=== PATIENT | female | born 1950 | race Caucasian/White ===

== ENCOUNTER 2018-08-06 10:51 | Outpatient (CLI) | payer MEDICARE, OTHER, SELFPAY ==
--- NOTE | 2018-08-06 10:48 | DI.RAD_ITS ---
SYMPTOM/DIAGNOSIS: ANNUAL F/U DESIRE BILATERAL HIPS AND PELVIS: Comparison is made with 08/21/17. There has been no change in the bilateral hip prostheses. No abnormal bony lucencies are seen.
== END 2018-08-06 11:11 ==
PROVIDERS: PCP Family Medicine; Referring Provider Family Medicine; Visit Provider Student in an Organized Health Care Education/Training Program
DX: Z96.643 Presence of artificial hip joint, bilateral (principal); Z47.1 Aftercare following joint replacement surgery; I10 Essential (primary) hypertension
CPT/HCPCS: 99213; 73502

== ENCOUNTER 2019-05-08 08:55 | Outpatient (CLI) | payer MEDICARE, OTHER, SELFPAY ==
[2019-05-08 11:51] LABS: Calculated LDL 125 mg/dL (<100); Cholesterol 196 mg/dL (<200); Glucose 96 mg/dL (74-106); HDL Cholesterol 54 mg/dL (40-60); Triglyceride 85 mg/dL (<150)
== END 2019-05-08 09:15 ==
PROVIDERS: PCP Family Medicine; Visit Provider Family Medicine
DX: E78.5 Hyperlipidemia, unspecified (principal)
CPT/HCPCS: 36415; 80061; 82947

== ENCOUNTER 2022-05-22 09:51 | Outpatient (CLI) | payer MEDICARE, SELFPAY ==
[2022-05-22 12:26] LABS: Glucose 103 mg/dL (74-106)
[2022-05-23 09:38] LABS: Lab Add On Test DONE
[2022-05-23 10:06] LABS: Calculated LDL 121 mg/dL (<100); Cholesterol 201 mg/dL (<200); HDL Cholesterol 54 mg/dL (40-60); Triglyceride 133 mg/dL (<150)
== END 2022-05-22 09:52 | disposition home or self-care (01) ==
PROVIDERS: PCP Family Medicine; Referring Provider Family Medicine; Visit Provider Family Medicine
DX: E78.5 Hyperlipidemia, unspecified (principal); R73.9 Hyperglycemia, unspecified
CPT/HCPCS: 36415; 80061; 82947

== ENCOUNTER 2022-06-16 16:09 | Emergency (ER) | payer MEDICARE, SELFPAY ==
[2022-06-16 16:13] VITALS: BP 171/109; PULSE 97; RESP 18; TEMP 37.6; O2SAT 95
--- NOTE | 2022-06-16 16:15 | DI.RAD_ITS ---
Exam(s) XR CHEST 2V PA LATERAL EXAM: XR CHEST 2V PA LATERAL CLINICAL HISTORY: cough. TECHNIQUE: 2D digital imaging was performed. COMPARISON: No exams were available for comparison FINDINGS: 2 views: Heart size is normal. The mediastinum is not widened. Lungs are clear. No infiltrates nor pleural effusions. IMPRESSION: No acute pulmonary findings. DATA REPOSITORY: RADIATION DOSE DELIVERED:
[2022-06-16 16:21] VITALS: RESP 16
--- NOTE | 2022-06-16 16:22 | W.ED.GENAD ---
Discharge Plan Disposition Patient Disposition: Home Discharge Details Clinical Impression: Hypertension Primary Care Provider: Dov Waters ED Provider: Bentley Mckeon Home Meds and New Rx's Prescriptions: No Action cholecalciferol (vitamin D3) 5,000 UNIT tablet 5,000 unit PO DAILY losartan 25 mg tablet 25 mg PO DAILY Qty: 30 2RF multivitamin 1 EACH capsule 1 cap PO DAILY vitamin B complex 1 EACH capsule 1 cap PO DAILY Fish Oil 500 MG capsule 1 mg PO DAILY Discharge Instructions Instructions: Hypertension (ED) Additional Instructions: Please continue taking all your regular medications. Please get a new blood pressure cuff Please follow your primary care doctor within the next week. Medical Decision Making 71 lady presented to the emergency room with concerns of rising hypertension. She has been documenting her blood pressure over the past week. She is started on losartan on Saturday last week. EKG did not show any signs of ischemia. Troponin was negative. Chest x-ray normal. BMP within normal limits. There appears to be no endorgan damage from her hypertension. Repeat blood pressure in the emergency room 130/90. Following this she took her blood pressure with her own cuff and it was significantly higher. Have asked her to get a new blood pressure cuff. HPI General Date/Time Provider Initiated Documentation: 06/16/22 16:22. HPI Narrative: 70-year-old lady presented to the emergency room with concerns of hypertension. She started her first antihypertensive meds last Saturday. She takes 25 mg of the losartan. She has been monitoring her blood pressure and throughout the week she has noticed that it has increased. She took her blood pressure several times today got very anxious because the numbers were going up so she decided come in to be evaluated emergency department. She does not endorse any headaches. No nausea no vomiting. No visual changes. No chest pain or chest pressure. No back pain or abdominal pain. No swelling of the lower extremities. Related Data Home Medications Medication Instructions Recorded Confirmed multivitamin 1 cap PO DAILY 02/24/14 06/16/22 omega-3 fatty acids 500 mg capsule 1 mg PO DAILY 02/24/14 06/16/22 (Fish Oil) vitamin B complex 1 cap PO DAILY 02/24/14 06/16/22 cholecalciferol (vitamin D3) 125 5,000 unit PO DAILY 06/24/15 06/16/22 mcg (5,000 unit) tablet losartan 25 mg tablet 25 mg PO DAILY #30 tabs 06/07/22 06/16/22 Previous Rx's Medication Instructions Recorded losartan 25 mg tablet 25 mg PO DAILY #30 tabs 06/07/22 Allergies Allergy/AdvReac Type Severity Reaction Status Date / Time No Known Allergies Allergy Verified 06/16/22 16:23 General Stated Complaint: GenMedical CONTRERAS: 3 Review of Systems Narrative: 10 point review of system is negative unless otherwise specified in the HPI. PFSH All Active Problems (Updated 06/16/22 @ 18:27 by Bentley Mckeon MD) Hypertension (Chronic) Cystocele, midline (Acute) grade 1 Rectocele (Acute) grade 2 Dupuytren contracture (Acute) Pelvic pressure in female (Acute) Fall down stairs (Acute) Carpal tunnel syndrome, bilateral (Acute) S/P RIGHT RELEASE 08/2002 MILD SYMPTOMS ON THE LEFT Disc herniation (Acute) WITH NERVE IMPINGMENT ON S1 DISC BULGE L4-5 WITH BILATERAL L5 NERVE IMPINGMENT Essential hypertension (Acute) DIET CONTROLLED Fibrocystic breast disease (Acute) RETRACTED LEFT NIPPLE Hyperlipidemia (Acute) Lumbar disc disease (Acute) LEFT LS-S1 DISC 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 Primary osteoarthritis of left hip (Acute 06/05/17) Primary osteoarthritis of right hip (Acute 06/05/17) Medical History Chronic low back pain Fibrocystic breast disease Hyperlipidemia Hypertension Surgical History History of appendectomy Incision & Drainage, Abscess or Hematoma (~02/2014) Ligation of fallopian tube (~1988) Open Carpal Tunnel release 11/2002 OLENA/BSO (~1989) Family History Mother , 85 Melanoma Stroke Alzheimer disease Father , 89 Heart disease Skin cancer Hyperlipidemia Paternal Grandfather , 78 Neoplasm LUNG Asthma Paternal Grandmother , 78 Stroke Maternal Grandfather , age 70 No problems noted. Maternal Grandmother , age 92 No problems noted. Sister No problems noted. Brother , age 17 No problems noted. Brother No problems noted. Son No problems noted. Son No problems noted. Daughter No problems noted. Social History Smoking/Tobacco Use Status: Never Second Hand Exposure: Yes Counseling given: other Smoking risk assessment performed?: Yes Alcohol Intake: never Drug use: Never Substance use type: does not use Counseling given: No Counseling provided: none Caregiver/Support person: No Household members: none Housing: house Communication Needs: None Do you need help understanding health information?: Never Pets and animals: No Sexually active: No Do you think of yourself as: straight/heterosexual Current gender identity: female What is your relationship status?: How often do you talk on the phone with friends or family?: three or more times per week How often do you get together with friends or relatives?: once per week How often do you attend congregational or sikh services?: 4 or more times per year Do you belong to any clubs or organized social groups?: no Panel score (0-1 are the most socially isolated patients): 2 What type of physical activity do you participate in: walking Duration: 15-30 minutes/day Frequency: 3-4 times per week Gillian/Anabaptism: Pentecostalism Special gillian needs: No Seatbelt use: always Helmet use: Yes Helmet use: always Drive intox or ride w/intox airport shuttle driver: No Do you feel safe at home: Yes Do you feel safe in your relationship?: Yes Female Reproductive History Menstrual Age of Menarche: 10 control method: permanent sterilization Menopause type: surgical History History 3 Para 3 Hx # Term Pregnancies Multiple births Hx # Pregnancies Ectopic pregnancies AB induced Hx Number of Living Children AB spontaneous Past Pregnancies Del. Date GA/Weeks # Preg Succ Route Wgt Sex Labor Lgth Anesthesia Location Prov Complic 03/30/69 40 No Yes vaginal 3515.341 g [place] [facility] [place] 40 No Yes vaginal 3175.147 g [place] [facility] [place]03[place] 40 No Yes vaginal 3940.584 g Female [facility] [place] Narrative Exam Narrative: Awake alert oriented x3 calm no acute distress pleasant cooperative, anxious with pressured speech Normocephalic atraumatic PERRLA EOMI MMM anicteric Chest is clear to auscultation bilaterally. Heart regular rhythm and rate no murmurs Abdomen soft nondistended Extremities no edema full range of motion Skin no rashes Neuro 2-12 grossly intact strength 5/5 bilaterally Psych positive anxiety. Course Vital Signs Vital signs: Vital Signs Temperature 37.6 C 06/16/22 16:13 Pulse 97 H 06/16/22 16:13 Respiratory Rate 18 06/16/22 16:13 Blood Pressure 171/109 H 06/16/22 16:13 Pulse Oximetry 95 06/16/22 16:13 Temperature 37.6 C 06/16/22 16:13 Temperature Source Oral 06/16/22 16:13 Pulse 97 H 06/16/22 16:13 Respiratory Rate 18 06/16/22 16:13 Blood Pressure 171/109 H 06/16/22 16:13 Blood Pressure Position Sitting 06/16/22 16:13 Pulse Oximetry 95 06/16/22 16:13 Oxygen Delivery Method Room Air 06/16/22 16:13 Oxygen Flow Rate 0 06/16/22 16:13 Pain Level 0 06/16/22 16:13
[2022-06-16 17:05] LABS: Abs Immature Grans 0.03 10^3/uL (0.0-0.06); Absolute Basophil Count 0.02 10^3/uL (0.0-0.2); Absolute Eosinophil Count 0.04 10^3/uL (0.0-0.7); Absolute Lymphocyte Count 2.24 10^3/uL (1.2-3.4); Absolute Monocyte Count 0.44 10^3/uL (0.1-0.8); Absolute Neutrophil Count 4.57 10^3/uL (1.2-6.7); Basophils % 0.3; Eosinophils % 0.5; HCT 43.9 % (36.0-46.0); HGB 14.6 g/dL (11.2-15.7); Immature Grans % 0.4; Lymphocytes % 30.5; MCH 29.4 pg (27.0-33.0); MCHC 33.3 % (32.0-36.0); MCV 89 fL (80-95); MPV 9.8 fL (8.0-11.0); Neutrophils % 62.3; Platelet Count 268 10^3/uL (130-400); RBC 4.96 10^6/uL (3.93-5.22); RDW-SD 42.8 fL; WBC 7.34 10^3/uL (4.4-10.8)
--- NOTE | 2022-06-16 17:12 | DI.VRAD_ITS ---
PROCEDURE INFORMATION: Exam: XR Chest Exam date and time: 06/16/2022 5:02 PM Age: 71 years old Clinical indication: Patient HX: Cough; PT states hbp TECHNIQUE: Imaging protocol: Radiologic exam of the chest. Views: 2 views. COMPARISON: No relevant prior studies available. FINDINGS: Lungs: Unremarkable. No consolidation. Pleural spaces: Unremarkable. No pleural effusion. No pneumothorax. Heart/Mediastinum: Unremarkable. No cardiomegaly. Bones/joints: Mild degenerative changes of the osseous structures. IMPRESSION: No acute findings. Dictated and Authenticated by: Bal Hubbard MD. Ordering:MARIO Hagan MD
[2022-06-16 17:24] LABS: Anion Gap 9.6 mmol/L (3-11); BUN 13 mg/dL (7-18); CO2 24.4 mmol/L (21.0-32.0); CREATININE 0.7 mg/dL (0.55-1.02); Calcium 9.8 mg/dL (8.5-10.1); Chloride 102 mmol/L (98-107); Estimated GFR 91.26 (mL/min/1.73m2); Glucose 102 mg/dL (74-106); Potassium 3.9 mmol/L (3.5-5.1); Sodium 136 mmol/L (136-145); Troponin I < 50 ng/L (<or=60)
--- NOTE | 2022-06-16 17:45 | RT.EKG_ITS ---
APPROVED REPORT Exam: Resting ECG Reason for Exam: hypertension Patient Location: E HR:78 bpm ECG Measurements Heart Rate 78 AXIS DC 177 P 67 QRSd 89 QRS -52 QT 365 T 23 QTc 418 Conclusion Sinus rhythm...normal P axis, V-rate 60- 99 Inferior infarct, old...Q >35mS, II III aVF Consider anterior infarct...Q >30mS in V2-V5
[2022-06-16 18:22] VITALS: BP 138/90; PULSE 86; TEMP 37.1; O2SAT 95
[2022-06-16 18:30] VITALS: BP 138/90; PULSE 86; RESP 16; TEMP 37.1; O2SAT 95
== END 2022-06-16 18:31 | disposition home or self-care (01) ==
PROVIDERS: Emergency Provider Emergency Medicine; PCP Family Medicine
DX: I10 Essential (primary) hypertension (principal); F41.9 Anxiety disorder, unspecified
CPT/HCPCS: 80048; 93005; 99283; 71046; 84484; 85025; 93010

== ENCOUNTER 2024-07-30 11:03 | Outpatient (CLI) | payer MEDICARE, SELFPAY ==
[2024-07-30 13:07] LABS: Calculated LDL 136 mg/dL (<100); Cholesterol 219 mg/dL (<200); HDL Cholesterol 59 mg/dL (>or=50); Triglyceride 122 mg/dL (<150)
[2024-07-31 11:08] LABS: Hepatitis C Ab w Rflx HCV PCR Negative (Negative)
[2024-07-31 11:29] LABS: HIV-1/2 Ag & Ab Screen Negative (Negative)
[2024-07-31 11:38] LABS: HBs Antibody, Quant <3.1 mIU/mL (See Note); Hep B Surface Ab Negative (See Note); Hepatitis B Core Antibody Negative (Negative); Hepatitis B Surface Antigen Negative (Negative)
== END 2024-07-30 11:04 | disposition home or self-care (01) ==
LOC: LOS 11:03
PROVIDERS: PCP Family Medicine; Visit Provider Family Medicine
DX: E78.5 Hyperlipidemia, unspecified (principal); Z11.59 Encounter for screening for other viral diseases
CPT/HCPCS: 36415; 80061; 86704; 86706; 86803; 87340; 87389